=== PATIENT | male | born 1995 | race Asian ===

== ENCOUNTER → 2024-07-07 10:12 | Emergency (ER) | payer OTHER, SELFPAY ==
[2024-07-07 10:31] VITALS: BP 136/77
[2024-07-07 11:53] LABS: % Basophils 0.1 % (0-2); % Eosinophils 0.5 % (0-6); % Immature Granulocytes 0.4 % (0-0.5); % Lymphocytes 11.6 % (20.5-51.1); % Monocytes 12.8 % (1.7-9.3); % Neutrophils 74.6 % (42.2-75.2); Absolute Lymphocytes 0.9 10^3/uL (1.2-3.4); Absolute Neutrophils 5.9 10^3/uL (1.4-6.5); Hematocrit 44.1 % (39.0-52.0); Hemoglobin 14.8 g/dL (13.0-18.0); Mean Corp Hgb Conc. 33.6 g/dL (33.0-37.0); Mean Corpuscular Hgb 30.5 pg (27.0-31.0); Mean Corpuscular Volume 90.7 fL (80.0-94.0); Mean Platelet Volume 9.6 fL (7.4-10.4); Nucleated Red Blood Cells % 0 % (-); Platelet Count 246 10^3/uL (130-400); Red Blood Cell Count 4.86 10^6/uL (4.70-6.10); Red Cell Dist. Width 12.1 % (11.5-14.5); White Blood Cell Count 7.9 10^3/uL (4.8-10.8)
[2024-07-07 12:04] LABS: ALT (SGPT) 54 U/L (0-50); AST (SGOT) 36 U/L (17-59); Albumin 4.6 g/dl (3.5-5.0); Alkaline Phosphatase 35 U/L (38-126); Blood Urea Nitrogen 15 mg/dl (9-20); Calcium 9.3 mg/dl (8.4-10.2); Carbon Dioxide 26 mmol/L (22-30); Chloride 104 mmol/L (98-107); Glucose 108 mg/dl (70-99); Potassium 4.1 mmol/L (3.5-5.1); Sodium 140 mmol/L (135-145); Total Bilirubin 0.3 mg/dl (0.2-1.3); Total Protein 7.6 g/dl (6.3-8.2); eGFR > 60.00
[2024-07-07 12:26] LABS: COVID-19 Antigen Negative (Negative)
[2024-07-07] MEDS: MOTRIN 600 MG PO (12:33)
[2024-07-07 12:35] VITALS: BMI 25.3
--- NOTE | 2024-07-07 13:42 | ED.GENMED ---
History of Present Illness
General
Chief Complaint: Fever
Source: patient
Exam Limitations: none
Time Seen by Provider: 07/07/24 11:59
Nursing documentation reviewed up to this point in time: agreed with
History of Present Illness
History of Present Illness:
29 y/o M
healthy
was out of the country 2 weeks ago and while there he hadd sore throat, fever, cough. pt says he got zithromax and the sore throat and fever resolved but he had a cough that lingered
it wasn't as severe though, no longer productive
then returned home here 4 days ago
and starting 2 days ago he began with fever to 39.5 and sroe throat, cough
he has not had neck stiffness , severe headache, cp, sob, vomiting, diarrhea. pt has not had any bloody sputum
the fever does improve with tylenol
last took dose 930 am
Past History
Past History
ED Past Medical History: None
ED Past Surgical History: None
Social History
Tobacco: Non-smoker
Alcohol: None
Drug: None
Personal:
Living: with family
Review of Systems
Review of Systems
Allergies reviewed?: Yes
All Other Systems: Not applicable
Phy Exam
Physical Exam
Physical Exam:
GENERAL: Alert , in no apparent distress
EYE: pupils equal and reactive
NECK: Supple
ENT: b/l TM s clear, pharynx erythematous but no tonsillar hypertrophy or exudates
CARDIAC: Regular rate and rhythm, no edema
LUNGS: Clear breath sounds bilaterally, no acute respiratory distress, no wheezes/rales/rhonchi, occ cough
ABDOMEN: Soft, without focal tenderness, no r/g, no cvat, normal bowel sounds
NEUROLOGICAL: Alert and oriented, no focal neuro deficits
SKIN: Warm and dry, skin intact.
MUSCULOSKELETAL: No edema, well perfused.
PSYCH: Normal and appropriate interaction.
Sepsis
Sepsis Screening
Sepsis Assessment: Sepsis Ruled Out
Sepsis Screen
Sepsis Screen: Sepsis Ruled Out
Date: 07/07/24
Time: 13:55
Course
Orders/Labs/Results
Orders:
Orders
07/07/24 11:41
COVID-19 Antigen Urgent
Source: Nasal Swab
INF RAPID [Influenza A+B Rapid Molecular] Urgent
YESSICA Source: Nasal Swab
Specimen Description:
07/07/24 11:42
CBC/With Diff [Complete Blood Count/With Diff] Urgent
Comprehensive Metabolic Panel Urgent
07/07/24 12:27
Ibuprofen [Motrin] 600 mg PO NOW STA
CR Chest - 2 Views Urgent
Comment:
Reason For Exam: cough, fever
Abnormal Lab Results
07/07/24
11:42
Absolute Lymphs (auto) 0.9 L 10^3/uL
(1.2-3.4)
Absolute Monos (auto) 1.0 H 10^3/uL
(0.1-0.6)
Lymphocytes % 11.6 L %
(20.5-51.1)
Monocytes % 12.8 H %
(1.7-9.3)
Glucose 108 H mg/dl
(70-99)
ALT 54 H U/L
(0-50)
Alkaline Phosphatase 35 L U/L
(38-126)
07/07/24 11:42
07/07/24 11:42
Vital Signs
Initial and Last Documented VS:
Initial Vital Signs
Temp Pulse Resp BP Pulse Ox
38.6 C H 111 16 136/77 99
07/07/24 10:31 07/07/24 10:31 07/07/24 10:31 07/07/24 10:31 07/07/24 10:31
Last Documented Vital Signs
Temp Pulse Resp BP Pulse Ox
37.6 C 79 20 125/71 100
07/07/24 13:43 07/07/24 13:43 07/07/24 13:43 07/07/24 13:43 07/07/24 13:43
MDM/Problems Addressed
Differential Diagnosis Includes:
flu, covid, pna, bacteremia
MDM/Problems Addressed:
29-year-old male who was traveling outside the country and had a URI for which she took azithromycin. The symptoms never fully resolved but his fever did improve for about a week and then he started with new symptoms after flying home here.
Patient has sore throat, headache, fever, cough. He did not get his flu vaccine this year. Last took Tylenol this morning. On exam he looks nontoxic, was febrile and mildly tachycardic initially. He had mild erythematous pharyngitis, clear
lungs and an occasional cough. He was febrile and treated with ibuprofen which broke his fever. His chest x-ray was independently reviewed by me and clear. His white count is normal, transaminitis mildly likely related to the foot positive
influenza test. Patient has no risk factors and has had symptoms greater than 48 hours not making Tamiflu very beneficial. Will DC home for supportive care
*Critical Care Note
Total Time (30-74mins, 75-104mins- exclusive of procedures): Not Applicable
ED Attending Note
-
Portions of this chart may have been created with voice recognition software.� Occasional wrong word or��sound alike� substitutions may have occurred due to the inherent limitations of voice recognition software.
Discharge Plan
Departure
Patient Disposition: Home (Routine Discharge)
Date of Disposition: 07/07/24
Time of Disposition: 13:53
Patient with high blood pressure during this ER visit?: No
Condition: Fair
Covid-19: Negative COVID-19
Discharge Problem:
Influenza B
Instructions: Flu, Adult ED
Referrals:
Maico Grewal MD [Family Provider] - Follow up in 2-3 days
Stand Alone Forms: Return to Work
Activity Restrictions/Additional Instructions:
He tested positive for influenza B which causes the flu. Take ibuprofen every 8 hours, 3 tablets which is 600 mg [id number] every 8 hours as needed for fevers and aches. Take Tylenol 2 extra strength 3 times a day as needed for fevers and
aches. Drink plenty of fluids and rest. Your chest x-ray was clear and there is no sign of pneumonia. I expect your fever to last 3 to 5 days. Usually after that it resolves. If you are still having fevers or you feel any worse you may return
for evaluation. Stay home until you are fever free for 24 hours
Interventions
Interventions:
*Risk Screen - Suicide Last Done: 07/07/24 10:31
*General Assessment Last Done: 07/07/24 10:31
*Neglect/Abuse Screening Last Done: 07/07/24 10:31
*ED COVID-19 Vaccine History Last Done: 07/07/24 12:34
Discharge Date and Time
Print Language: DANISH
[2024-07-07 13:43] VITALS: BP 125/71
== END | disposition home or self-care (01) ==
LOC: EMR 10:12
PROVIDERS: EMERGENCY PHYSICIAN Emergency Medicine; FAMILY PHYSICIAN Internal Medicine
DX: J10.1 Influenza due to other identified influenza virus with other respiratory manifestations (principal); R51.9 Headache, unspecified; Z11.52 Encounter for screening for COVID-19
CPT/HCPCS: 99283; 71046; 80053; 85025; 87502; 87811